=== PATIENT | male | born 1955 | race Caucasian/White ===

== ENCOUNTER → 2020-12-04 09:15 | Outpatient (BNVA) | payer OTHER, SELFPAY | PROVIDERS: PCP Internal Medicine; Visit Provider Urology ==

== ENCOUNTER 2022-04-15 11:56 | Outpatient (AMB) | payer MEDICARE, OTHER, SELFPAY ==
--- NOTE | 2022-04-10 14:13 | A.OFFVIS_ITS ---
Intake Intake Visit Reasons: Yearly follow up(erectile dysfunction) Intake Note: Patient is present for Yearly Follow Up Current Medication: Sildenafil Blood Thinners: Invoice Classification Clerk Required: No Accompanied by: Self / Same As Patient Allergies No Known Allergies Allergy (Verified 04/16/23 08:33) HPI HPI Comments History of Present Illness Details Marin Jett is a very pleasant male. He is a patient of Dr Potter. He is seen in the office today for the following urologic conditions. - erectile dysfunction Stable Erectile dysfunction: Still with good response to low-dose sildenafil. Refill provided. Last PSA was 0.7. Only needs to check it every few years He presents today for for continued evaluation and management of erectile dysfunction. Symptoms have been present for/since years ago. Procedure(s)/Diagnosis causing dysfunction include Underwent bowel resection for lymphoma in 1995 . Current treatment includes Viagra/sildenafil - given generic script. At this time he experiences erections are partial and adequate for vaginal penetration, PEDRITO 17-21 Mild ED. Nocturnal erections do not occur. Currently they are in a stable relationship. Associated problems - dyslipidemia, hypertension Medications include(s) antihypertensive medication - metoprolol. Recent labs included a PSA (prostate-specific antigen) 10/2014 0.1 10/30 0.7. Overall he is satisfied with the current management. Current symptoms include trouble getting an erection, trouble sustaining an erection. Severity of the symptoms is moderate PEDRITO September 2015 13. [facility] Medical History Atrial fibrillation Erectile dysfunction HTN (hypertension) Impotence Lymphoma OA (osteoarthritis) Surgical History History of surgery Family History (Updated 04/16/23 @ 08:33 by MARE Camarillo) Father No problems noted. Mother No problems noted. Social History (Updated 04/16/23 @ 08:34 by MARE Camarillo) Alcohol intake: current Alcohol intake frequency: does not drink Patient Tobacco Use Status: Never used Tobacco Review of Systems Const Denies chills and Denies fever(s) Card Reports no additional complaints and Denies syncope Resp Denies cough GI Denies abdominal pain and Denies heartburn Reports as per HPI and Denies change in libido Neuro Denies syncope Psych Denies change in libido Endo Denies change in libido Physical Exam Const General: cooperative, healthy appearing, comfortable and no acute distress Orientation/consciousness: patient oriented x3 HEENT Face and sinus: Yes normal facial exam Mouth: moist mucous membranes Neck Neck: Yes normal visual inspection, Yes full ROM and Yes trachea midline Chest Chest palpation & inspection: normal inspection of the chest Resp Effort & Inspection: normal respiratory effort, able to speak in complete sentences and no respiratory distress GI Inspection: Yes normal to inspection Back/Spine/Pelvis Cervical Spine: normal cervical lordosis Thoracic/Lumbar Spine: thoracic and lumbar spine normal to inspection Skin General skin exam: no rashes or lesions noted Neuro General: patient oriented x3, gait normal, tone normal and moves all extremities Extrem General: Yes normal to inspection and Yes capillary refill normal Results AMB Urinalysis, Automated UA Leukoctes 0 Jeff/uL Last Edit by MARE Cam on 04/15/22 12:06 UA Nitrite Negative Last Edit by MARE Cam on 04/15/22 12:06 UA Urobilinogen 0.2 mg/dL Last Edit by MARE Cam on 04/15/22 12:06 UA Protein 0 mg/dL Last Edit by MARE Cam on 04/15/22 12:06 UA pH 6.0 Last Edit by MARE Cam on 04/15/22 12:06 UA Blood 0 Sher/uL Last Edit by MARE Cam on 04/15/22 12:06 UA Specific [place] 1.005 Last Edit by MARE Cam on 04/15/22 12:06 UA Ketone Negative Last Edit by MARE Cam on 04/15/22 12:06 UA Bilirubin 0 mg/dL Last Edit by MARE Cam on 04/15/22 12:06 UA Glucose 0 mg/dL Last Edit by MARE Cam on 04/15/22 12:06 Results Reviewed Results Reviewed: Laboratory Last Values Urine pH (Auto) 6.0 04/15/22 12:02 Specific [place] (Auto) 1.005 04/15/22 12:02 Urine Protein (Auto) 0 mg/dL 04/15/22 12:02 Glucose (UA)(Auto) 0 mg/dL 04/15/22 12:02 Urine Ketones (Auto) Negative 04/15/22 12:02 Urine Blood (Auto) 0 Sher/uL 04/15/22 12:02 Urine Nitrite (Auto) Negative 04/15/22 12:02 Urine Bilirubin (Auto) 0 mg/dL 04/15/22 12:02 Urine Urobilinogen (Auto) 0.2 mg/dL 04/15/22 12:02 Leukocyte Esterase (Auto) 0 Jeff/uL 04/15/22 12:02 Assessment & Plan Assessment & Plan (1) Erectile dysfunction: Code(s): N52.9 - Male erectile dysfunction, unspecified Qualifiers: Erectile dysfunction type: vasculogenic Vasculogenic erectile dysfunction type: due to arterial insufficiency Qualified Code(s): N52.01 - Erectile dysfunction due to arterial insufficiency Plan Twelve month follow-up Orders: Orders Prostate Specific Antigen 12 Months N52.9 - Male erectile dysfunction, unspecified AMB Urinalysis Automated 04/15/22 Z13.9 - Encounter for screening, unspecified Patient Instructions: Imaging studies, laboratory and physical exam results were discussed and reviewed in detail. No major barriers to patient understanding were identified. An opportunity to ask questions regarding the treatment plan was provided. All questions were answered. The patient expressed understanding and agreement with the above treatment plan. The patient is aware they should contact our office by phone for worsening of their current condition or the appearance of new urologic symptoms. Compliance is encouraged with any medications and followup testing that is ordered. It is a privilege to participate in the urologic care of your patient. If you have any questions or concerns regarding treatment for the above conditions, or other urologic issues, please do not hesitate to contact me. The office telephone contact is [phone]. This note is constructed using voice recognition software. While every effort has been made to ensure accuracy community director errors may have been included. Yours sincerely, Dr Espinoza Cordoba MD, DON [facility] - Urology Providers of Expert, Compassionate Care for the Genitourinary System Coding Level of Care Code Est Pt Level 4 (35238) Diagnoses Erectile dysfunction due to arterial insufficiency N52.01 Erectile dysfunction type: vasculogenic Vasculogenic erectile dysfunction type: due to arterial insufficiency
--- NOTE | 2022-04-15 12:00 | A.OFFVIS_ITS ---
Intake Intake Visit Reasons: Yearly follow up(erectile dysfunction) Intake Note: patient here for follow up erectile dysfunction Allergies No Known Allergies Allergy (Verified 04/15/22 12:00) HPI HPI Comments History of Present Illness Details Marin Jett is a very pleasant male. They are a patient of Dr Potter. They are seen in the office today for the following urologic conditions. - erectile dysfunction Telephone evaluation 15 minutes spent in consultation Talked about playing football and wrestling in college Erectile dysfunction: Still with good response to low-dose sildenafil. Refill provided. Last PSA was 0.7. Only needs to check it every few years He presents today for for continued evaluation and management of erectile dysfunction. Symptoms have been present for/since years ago. Procedure(s)/Diagnosis causing dysfunction include Underwent bowel resection for lymphoma in 1995 . Current treatment includes Viagra/sildenafil - given generic script. At this time he experiences erections are partial and adequate for vaginal penetration, PEDRITO 17-21 Mild ED. Nocturnal erections do not occur. Currently they are in a stable relationship. Associated problems hypertension No diabetes No dyslipidemia Yes depression No stress No decreased libido No pelvic surgery No Medications include(s) antihypertensive medication - metoprolol. Recent labs included a PSA (prostate-specific antigen) 10/2014 0.1 10/30 0.7. Overall he is satisfied with the current management. Current symptoms include trouble getting an erection, trouble sustaining an erection. Severity of the symptoms is moderate PEDRITO September 2015 13. [facility] Medical History Atrial fibrillation Erectile dysfunction HTN (hypertension) Impotence Lymphoma OA (osteoarthritis) Surgical History History of surgery Results AMB Urinalysis, Automated UA Leukoctes 0 Jeff/uL Last Edit by MARE Cam on 04/15/22 12:06 UA Nitrite Negative Last Edit by MARE Cam on 04/15/22 12:06 UA Urobilinogen 0.2 mg/dL Last Edit by MARE Cam on 04/15/22 12:06 UA Protein 0 mg/dL Last Edit by MARE Cam on 04/15/22 12:06 UA pH 6.0 Last Edit by MARE Cam on 04/15/22 12:06 UA Blood 0 Sher/uL Last Edit by MARE Cam on 04/15/22 12:06 UA Specific [place] 1.005 Last Edit by HONEY CamA on 04/15/22 12:06 UA Ketone Negative Last Edit by MARE Cam on 04/15/22 12:06 UA Bilirubin 0 mg/dL Last Edit by MARE Cam on 04/15/22 12:06 UA Glucose 0 mg/dL Last Edit by MARE Cam on 04/15/22 12:06 Results Reviewed Results Reviewed: Laboratory Last Values Urine pH (Auto) 6.0 04/15/22 12:02 Specific [place] (Auto) 1.005 04/15/22 12:02 Urine Protein (Auto) 0 mg/dL 04/15/22 12:02 Glucose (UA)(Auto) 0 mg/dL 04/15/22 12:02 Urine Ketones (Auto) Negative 04/15/22 12:02 Urine Blood (Auto) 0 Sher/uL 04/15/22 12:02 Urine Nitrite (Auto) Negative 04/15/22 12:02 Urine Bilirubin (Auto) 0 mg/dL 04/15/22 12:02 Urine Urobilinogen (Auto) 0.2 mg/dL 04/15/22 12:02 Leukocyte Esterase (Auto) 0 Jeff/uL 04/15/22 12:02 Assessment & Plan Assessment & Plan Orders: Orders AMB Urinalysis Automated Today Z13.9 - Encounter for screening, unspecified Prostate Specific Antigen 12 Months N52.9 - Male erectile dysfunction, unspecified Coding
== END 2022-04-15 12:38 | disposition home or self-care (01) ==
LOC: HO.HUSH 11:56
PROVIDERS: PCP Nurse Practitioner Adult Health; Visit Provider Urology
DX: N52.01 Erectile dysfunction due to arterial insufficiency (principal)
CPT/HCPCS: 99214; 99499

== ENCOUNTER → 2022-04-15 11:56 | Outpatient (BNVA) | payer MEDICARE, OTHER, SELFPAY | PROVIDERS: PCP Nurse Practitioner Adult Health; Visit Provider Urology | DX: N52.01 Erectile dysfunction due to arterial insufficiency (principal) | CPT/HCPCS: 99212 ==

== ENCOUNTER 2023-04-03 11:26 | Outpatient (REF) | payer MEDICARE, OTHER, SELFPAY ==
[2023-04-03 14:20] LABS: Prostate Specific Antigen 0.13 ng/mL (<0.05-4.0)
== END 2023-04-03 11:27 | disposition home or self-care (01) ==
LOC: HO.10HDL 11:26
PROVIDERS: Visit Provider Urology
DX: N52.9 Male erectile dysfunction, unspecified (principal); Z12.5 Encounter for screening for malignant neoplasm of prostate
CPT/HCPCS: 36415; 84153

== ENCOUNTER 2023-04-16 08:26 | Outpatient (AMB) | payer MEDICARE, OTHER, SELFPAY ==
--- NOTE | 2023-04-16 08:28 | MHC.OFFVIS ---
Intake Intake Visit Reasons: 1Y PSA/Erectile Dys(set) Intake Note: Patient is present for ED Follow up Submarine Element Coordinator Required: No Accompanied by: Self / Same As Patient Allergies No Known Allergies Allergy (Verified 04/16/23 08:33) Medication List - Last Reconciled 04/16/23 by Espinoza Cordoba MD cholestyramine (with sugar) 4 gram 1 g PO TID metoprolol succinate ER 50 mg PO DAILY sildenafil 50 mg PO DAILY PRN 30 days HPI HPI Comments History of Present Illness Details Marin Jett is a very pleasant male. He is a patient of Dr Potter. He is seen in the office today for the following urologic conditions. - erectile dysfunction Does have left spermatocele Talked about playing football and wrestling in college Erectile dysfunction: Still with good response to low-dose sildenafil. Refill provided. Last PSA was 0.7. Only needs to check it every few years He presents today for for continued evaluation and management of erectile dysfunction. Symptoms have been present for/since years ago. Procedure(s)/Diagnosis causing dysfunction include Underwent bowel resection for lymphoma in 1995 . Current treatment includes Viagra/sildenafil - given generic script. At this time he experiences erections are partial and adequate for vaginal penetration, PEDRITO 17-21 Mild ED. Nocturnal erections do not occur. Currently they are in a stable relationship. Associated problems - dyslipidemia, hypertension Medications include(s) antihypertensive medication - metoprolol. Recent labs included a PSA (prostate-specific antigen) 10/2014 0.1 10/30 0.7. Overall he is satisfied with the current management. Current symptoms include trouble getting an erection, trouble sustaining an erection. Severity of the symptoms is moderate PEDRITO September 2015 13. [facility] Medical History Atrial fibrillation Erectile dysfunction HTN (hypertension) Impotence Lymphoma OA (osteoarthritis) Surgical History History of surgery Family History (Updated 04/16/23 @ 08:33 by MARE Camarillo) Father No problems noted. Mother No problems noted. Social History (Updated 04/16/23 @ 08:34 by MARE Camarillo) Alcohol intake: current Alcohol intake frequency: does not drink Patient Tobacco Use Status: Never used Tobacco Review of Systems Const Denies chills and Denies fever(s) Card Reports no additional complaints and Denies syncope Resp Denies cough GI Denies abdominal pain and Denies heartburn Reports as per HPI and Denies change in libido Neuro Denies syncope Psych Denies change in libido Endo Denies change in libido Physical Exam Const General: cooperative, healthy appearing, comfortable and no acute distress Orientation/consciousness: patient oriented x3 HEENT Face and sinus: Yes normal facial exam Mouth: moist mucous membranes Neck Neck: Yes normal visual inspection, Yes full ROM and Yes trachea midline Chest Chest palpation & inspection: normal inspection of the chest Resp Effort & Inspection: normal respiratory effort, able to speak in complete sentences and no respiratory distress GI Inspection: Yes normal to inspection Back/Spine/Pelvis Cervical Spine: normal cervical lordosis Thoracic/Lumbar Spine: thoracic and lumbar spine normal to inspection Skin General skin exam: no rashes or lesions noted Neuro General: patient oriented x3, gait normal, tone normal and moves all extremities Extrem General: Yes normal to inspection and Yes capillary refill normal Results AMB Urinalysis, Automated UA Leukoctes 0 Jeff/uL Last Edit by MARE Camarillo on 04/16/23 08:36 UA Nitrite Negative Last Edit by MARE Camarillo on 04/16/23 08:36 UA Urobilinogen 0.2 mg/dL Last Edit by MARE Camarillo on 04/16/23 08:36 UA Protein 0 mg/dL Last Edit by MARE Camarillo on 04/16/23 08:36 UA pH 6.0 Last Edit by MARE Camarillo on 04/16/23 08:36 UA Blood 0 Sher/uL Last Edit by MARE Camarillo on 04/16/23 08:36 UA Specific [place] 1.010 Last Edit by MARE Camarillo on 04/16/23 08:36 UA Ketone Negative Last Edit by MARE Camarillo on 04/16/23 08:36 UA Bilirubin 0 mg/dL Last Edit by MARE Camarillo on 04/16/23 08:36 UA Glucose 0 mg/dL Last Edit by MARE Camarillo on 04/16/23 08:36 Results Reviewed Results Reviewed: Laboratory Last Values Urine pH (Auto) 6.0 04/16/23 08:34 Specific [place] (Auto) 1.010 04/16/23 08:34 Urine Protein (Auto) 0 mg/dL 04/16/23 08:34 Glucose (UA)(Auto) 0 mg/dL 04/16/23 08:34 Urine Ketones (Auto) Negative 04/16/23 08:34 Urine Blood (Auto) 0 Sher/uL 04/16/23 08:34 Urine Nitrite (Auto) Negative 04/16/23 08:34 Urine Bilirubin (Auto) 0 mg/dL 04/16/23 08:34 Urine Urobilinogen (Auto) 0.2 mg/dL 04/16/23 08:34 Leukocyte Esterase (Auto) 0 Jeff/uL 04/16/23 08:34 Assessment & Plan Assessment & Plan (1) Erectile dysfunction: Code(s): N52.9 - Male erectile dysfunction, unspecified Qualifiers: Erectile dysfunction type: vasculogenic Vasculogenic erectile dysfunction type: due to arterial insufficiency Qualified Code(s): N52.01 - Erectile dysfunction due to arterial insufficiency Plan Twelve month follow-up Orders: Orders AMB Urinalysis Automated Today Z13.9 - Encounter for screening, unspecified Medications: Changed From sildenafil administer 60 minutes before intended activity 25 mg PO DAILY PRN 60 tabs 6RF sexual activity 30 days N52.9 - Male erectile dysfunction, unspecified To sildenafil administer 60 minutes before intended activity 50 mg PO DAILY PRN 30 tabs 2RF sexual activity 30 days N52.9 - Male erectile dysfunction, unspecified Patient Instructions: Imaging studies, laboratory and physical exam results were discussed and reviewed in detail. No major barriers to patient understanding were identified. An opportunity to ask questions regarding the treatment plan was provided. All questions were answered. The patient expressed understanding and agreement with the above treatment plan. The patient is aware they should contact our office by phone for worsening of their current condition or the appearance of new urologic symptoms. Compliance is encouraged with any medications and followup testing that is ordered. It is a privilege to participate in the urologic care of your patient. If you have any questions or concerns regarding treatment for the above conditions, or other urologic issues, please do not hesitate to contact me. The office telephone contact is [phone]. This note is constructed using voice recognition software. While every effort has been made to ensure accuracy office analyst errors may have been included. Yours sincerely, Dr Espinoza Cordoba MD, DON [facility] - Urology Providers of Expert, Compassionate Care for the Genitourinary System Coding Level of Care Code Est Pt Level 4 (70770) Diagnoses Erectile dysfunction due to arterial insufficiency N52.01 Erectile dysfunction type: vasculogenic Vasculogenic erectile dysfunction type: due to arterial insufficiency
== END 2023-04-16 09:03 | disposition home or self-care (01) ==
PROVIDERS: PCP Nurse Practitioner Adult Health; Visit Provider Urology
DX: Z13.9 Encounter for screening, unspecified (principal); N52.01 Erectile dysfunction due to arterial insufficiency
CPT/HCPCS: 99214

== ENCOUNTER → 2023-04-16 08:26 | Outpatient (BNVA) | payer MEDICARE, OTHER, SELFPAY | PROVIDERS: Visit Provider Urology | DX: N52.01 Erectile dysfunction due to arterial insufficiency (principal) | CPT/HCPCS: 81003; 99212 ==

== ENCOUNTER 2024-04-19 09:08 | Outpatient (AMB) | payer MEDICARE, OTHER, SELFPAY ==
--- NOTE | 2024-04-19 09:21 | A.OFFVIS_ITS ---
Intake Visit Reasons: 1Y Follow Up-(ED) Intake Note: Patient is Present for Follow Up Yearly Erectile Dys Urology Medication: Patient is no longer taking Sildenafil Antibiotic Allergies: None Blood Thinners: None Recent PSA: 03/2023- 0.13 Patient states that he has a new allergy to Gluten and Is no longer taking Sildenafil Ceramic Coater Required: No Accompanied by: Self / Same As Patient Allergies No Known Allergies Allergy (Verified 04/16/23 08:33) HPI Comments Details: Marin Jett is a very pleasant male. He is a patient of Dr Potter. He is seen in the office today for the following urologic conditions. - erectile dysfunction - left spermatocele Yearly follow-up Talked about playing football and wrestling in college Known left spermatocele Erectile dysfunction: Still with good response to low-dose sildenafil. Refill provided. Last PSA was 0.7. Only needs to check it every few years He presents today for for continued evaluation and management of erectile dysfunction. Symptoms have been present for/since years ago. Procedure(s)/Diagnosis causing dysfunction include Underwent bowel resection for lymphoma in 1995 . Current treatment includes Viagra/sildenafil - given generic script. At this time he experiences erections are partial and adequate for vaginal penetration, PEDRITO 17-21 Mild ED. Nocturnal erections do not occur. Currently they are in a stable relationship. Associated problems - dyslipidemia, hypertension Medications include(s) antihypertensive medication - metoprolol. Recent labs included a PSA (prostate-specific antigen) 10/2014 0.1 10/30 0.7. Overall he is satisfied with the current management. Current symptoms include trouble getting an erection, trouble sustaining an erection. Severity of the symptoms is moderate PEDRITO September 2015 13. [facility] Medical History Lymphoma HTN (hypertension) Atrial fibrillation OA (osteoarthritis) Impotence Erectile dysfunction Surgical History History of surgery Family History Father No problems noted. Mother No problems noted. Social History Alcohol intake: current Alcohol intake frequency: does not drink Patient Tobacco Use Status: Never used Tobacco Review of Systems Const Denies chills and Denies fever(s) Card Reports no additional complaints and Denies syncope Resp Denies cough GI Denies abdominal pain and Denies heartburn Reports as per HPI and Denies change in libido Neuro Denies syncope Psych Denies change in libido Endo Denies change in libido Physical Exam Const General: cooperative, healthy appearing, comfortable and no acute distress Orientation/consciousness: patient oriented x3 HEENT Face and sinus: Yes normal facial exam Mouth: moist mucous membranes Neck Neck: Yes normal visual inspection, Yes full ROM and Yes trachea midline Chest Chest palpation & inspection: normal inspection of the chest Resp Effort & Inspection: normal respiratory effort, able to speak in complete sentences and no respiratory distress GI Inspection: Yes normal to inspection Back/Spine/Pelvis Cervical Spine: normal cervical lordosis Thoracic/Lumbar Spine: thoracic and lumbar spine normal to inspection Skin General skin exam: no rashes or lesions noted Neuro General: patient oriented x3, gait normal, tone normal and moves all extremities Extrem General: Yes normal to inspection and Yes capillary refill normal Assessment & Plan Assessment & Plan (1) Erectile dysfunction: Code(s): N52.9 - Male erectile dysfunction, unspecified Category: Medical Qualifiers: Erectile dysfunction type: vasculogenic Vasculogenic erectile dysfunction type: due to arterial insufficiency Qualified Code(s): N52.01 - Erectile dysfunction due to arterial insufficiency Plan Yearly follow-up Patient Instructions: Imaging studies, laboratory and physical exam results were discussed and reviewed in detail. No major barriers to patient understanding were identified. An opportunity to ask questions regarding the treatment plan was provided. All questions were answered. The patient expressed understanding and agreement with the above treatment plan. The patient is aware they should contact our office by phone for worsening of their current condition or the appearance of new urologic symptoms. Compliance is encouraged with any medications and followup testing that is ordered. It is a privilege to participate in the urologic care of your patient. If you have any questions or concerns regarding treatment for the above conditions, or other urologic issues, please do not hesitate to contact me. The office telephone contact is [phone]. This note is constructed using voice recognition software. While every effort has been made to ensure accuracy studio assistant errors may have been included. Yours sincerely, Dr Espinoza Cordoba MD, DON [facility] - Urology Providers of Expert, Compassionate Care for the Genitourinary System Coding Level of Care Code Est Pt Level 4 (41992) Diagnoses Erectile dysfunction due to arterial insufficiency N52.01 Erectile dysfunction type: vasculogenic Vasculogenic erectile dysfunction type: due to arterial insufficiency
== END 2024-04-19 09:56 | disposition home or self-care (01) ==
PROVIDERS: PCP Nurse Practitioner Adult Health; Visit Provider Urology
DX: N52.01 Erectile dysfunction due to arterial insufficiency (principal)
CPT/HCPCS: 99214

== ENCOUNTER → 2024-04-19 09:08 | Outpatient (BNVA) | payer MEDICARE, OTHER, SELFPAY | PROVIDERS: PCP Nurse Practitioner Adult Health; Visit Provider Urology | DX: N52.01 Erectile dysfunction due to arterial insufficiency (principal) | CPT/HCPCS: 99212 ==

== ENCOUNTER 2025-04-05 10:34 | Outpatient (REF) | payer MEDICARE, OTHER, SELFPAY ==
[2025-04-05 12:31] LABS: Prostate Specific Antigen 0.11 ng/mL (<0.05-4.0)
--- OUTSIDE RECORDS SUMMARY | 2025-04-05 13:13 | XMS_ITS | Clinical Summary ---
Author Organization [facility] Address [address] [place] [address] Care Team Providers Care [employer] Supervisor Name Role Phone Nick Potter MD Primary Care Provider [phone] Medications Medication Sig Dispensed Refills Start Date End Date Status metoprolol succinate (TOPROL-XL) 24 hr tablet 50 mg Take 50 mg by mouth daily. 0 Active cholestyramine light 4 g packet Take 4 g by mouth 2 (two) times a day. 0 Active Multiple Vitamins-Minerals (CENTRUM SILVER PO) Take by mouth. 0 A ctive Vitamin D, Cholecalciferol, 50 MCG (2000 UT) CAPS Take by mouth. 0 Active ascorbic acid (VITAMIN C) 500 MG tablet Take 500 mg by mouth daily. 0 Active Xbwggmzvydo-Hzaadakpw-Y it C-Mn (GLUCOSAMINE CHONDR 1500 COMPLX PO) Take by mouth. 0 Active Active Problems Problem Noted Date Diagnosed Date Diffuse large cell lymphoma in remission 021 Lymphadenopathy of right cervical region 021 Social History Tobacco Use Types Packs/Day Years Used Date Smoking Tobacco: Never Smokeless Tobacco: Never Alcohol Use Standard Drinks/Week Comments No 0 (1 standard drink = 0.6 oz pur e alcohol) Sex and Gender Information Value Date Recorded Sex Assigned at Not on file Gender Identity Not on file Sexual Orientation Not on file Last Filed Vital Signs Vital Sign Reading Time Taken Comments Blood Pressure 133/77 09/13/2020 1:23 PM EST Pulse 61 09/13/2020 1:23 PM EST Temperature 36.4 C (97.5 F) 09/13/2020 1:23 PM EST Respiratory Rate - - Oxygen Saturation - - Inhaled Oxygen Concentration - - Weight 102.1 kg (225 lb) 09/13/2020 1:23 PM EST Height 190.5 cm (6' 3 ) 09/13/2020 1:23 PM EST Body Mass Index 28.12 09/13/2020 1:23 PM EST Plan of Treatment Health Maintenance Due Date Last Done Comments Hepatitis C Screening 1954 COVID-19 Vaccine (#1) 1959 Depression Screening 1966 Preventative Health Evaluation 1972 DTap / Tdap / Td (1 - Tdap) 1973 Shingrix-Zoster Vaccine (1 of 2) 1973 Colon Cancer Screening (Colonoscopy) 1999 Pneumococcal Vaccine (2 of 2 - PPSV23 or PCV20) 02/12/2018 12/18/2017 Fall Risk Assessment 2019 Influenza Vaccine (#1) 2025 RSV Adult > 60+ Yrs or Pregn ant (1 - 1-dose 75+ series) 2029 Hepatitis B Vaccines Aged Out No long er eligible based on patient's age to complete this topic RSV Ped < 20 months Aged Out No longe r eligible based on patient's age to complete this topic Care Teams [employer] Fabrication Supervisor Relationship Specialty Start Date End Date Nick Potter MD [address] [facility] [address] Cardiology & [place] [address] PCP - General Internal Medicine 09/07/20
== END 2025-04-05 10:35 | disposition home or self-care (01) ==
LOC: HO.LAB 10:34
PROVIDERS: Visit Provider Urology
DX: Z12.5 Encounter for screening for malignant neoplasm of prostate (principal)
CPT/HCPCS: 36415; 84153

== ENCOUNTER 2025-04-19 08:35 | Outpatient (AMB) | payer MEDICARE, OTHER, SELFPAY ==
--- NOTE | 2025-04-19 08:34 | MHC.OFFVIS ---
Intake Visit Reasons: 1y/PSA Intake Note: Patient is Present for Follow Up Yearly Erectile Dys Urology Medication: Sildenafil Antibiotic Allergies: None Blood Thinners: None Recent PSA: 04/05/25- 0.11 Evp Chief Exploration Officer Required: No Accompanied by: Self / Same As Patient Allergies No Known Allergies Allergy (Verified 04/19/25 08:35) HPI Comments Details: Marin Jett is a very pleasant male. He is a patient of Dr Potter. He is seen in the office today for the following urologic conditions. - erectile dysfunction - left spermatocele Yearly follow-up Talked about playing football and wrestling in college Known left spermatocele Continues to respond to via Erectile dysfunction: Still with good response to low-dose sildenafil. Refill provided. Last PSA was 0.7. Only needs to check it every few years He presents today for for continued evaluation and management of erectile dysfunction. Symptoms have been present for/since years ago. Procedure(s)/Diagnosis causing dysfunction include Underwent bowel resection for lymphoma in 1995 . Current treatment includes Viagra/sildenafil - given generic script. At this time he experiences erections are partial and adequate for vaginal penetration, PEDRITO 17-21 Mild ED. Nocturnal erections do not occur. Currently they are in a stable relationship. Associated problems - dyslipidemia, hypertension Medications include(s) antihypertensive medication - metoprolol. Recent labs included a PSA (prostate-specific antigen) 10/2014 0.1 10/30 0.7. Overall he is satisfied with the current management. Current symptoms include trouble getting an erection, trouble sustaining an erection. Severity of the symptoms is moderate PEDRITO September 2015 13. [facility] Medical History Lymphoma HTN (hypertension) Atrial fibrillation OA (osteoarthritis) Impotence Erectile dysfunction Surgical History History of surgery Family History Father No problems noted. Mother No problems noted. Social History Alcohol intake: current Alcohol intake frequency: does not drink Patient Tobacco Use Status: Never used Tobacco Review of Systems Const Denies chills and Denies fever(s) Card Reports no additional complaints and Denies syncope Resp Denies cough GI Denies abdominal pain and Denies heartburn Reports as per HPI and Denies change in libido Neuro Denies syncope Psych Denies change in libido Endo Denies change in libido Physical Exam Const General: cooperative, healthy appearing, comfortable and no acute distress Orientation/consciousness: patient oriented x3 HEENT Face and sinus: Yes normal facial exam Mouth: moist mucous membranes Neck Neck: Yes normal visual inspection, Yes full ROM and Yes trachea midline Chest Chest palpation & inspection: normal inspection of the chest Resp Effort & Inspection: normal respiratory effort, able to speak in complete sentences and no respiratory distress GI Inspection: Yes normal to inspection Back/Spine/Pelvis Cervical Spine: normal cervical lordosis Thoracic/Lumbar Spine: thoracic and lumbar spine normal to inspection Skin General skin exam: no rashes or lesions noted Neuro General: patient oriented x3, gait normal, tone normal and moves all extremities Extrem General: Yes normal to inspection and Yes capillary refill normal Assessment & Plan Assessment & Plan (1) Erectile dysfunction: Code(s): N52.9 - Male erectile dysfunction, unspecified Category: Medical Qualifiers: Erectile dysfunction type: vasculogenic Vasculogenic erectile dysfunction type: due to arterial insufficiency Qualified Code(s): N52.01 - Erectile dysfunction due to arterial insufficiency Plan Twelve month follow-up Medications: Changed From sildenafil administer 60 minutes before intended activity 50 mg PO DAILY 30 days PRN 30 tabs 1RF sexual activity N52.9 - Male erectile dysfunction, unspecified To sildenafil administer 60 minutes before intended activity 50 mg PO ONCE PRN 30 tabs 1RF sexual activity 30 days N52.9 - Male erectile dysfunction, unspecified Patient Instructions: This note is constructed using voice recognition software. While every effort has been made to ensure accuracy division human resources manager errors may have been included. Imaging studies, laboratory and physical exam results were discussed and reviewed in detail. No major barriers to patient understanding were identified. An opportunity to ask questions regarding the treatment plan was provided. All questions were answered. The patient expressed understanding and agreement with the above treatment plan. The patient is aware they should contact our office by phone for worsening of their current condition or the appearance of new urologic symptoms. Compliance is encouraged with any medications and followup testing that is ordered. It is a privilege to participate in the urologic care of your patient. If you have any questions or concerns regarding treatment for the above conditions, or other urologic issues, please do not hesitate to contact me. The office telephone contact is [phone]. 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
== END 2025-04-19 08:50 | disposition home or self-care (01) ==
LOC: HO.HUSH 08:35
PROVIDERS: PCP Nurse Practitioner Adult Health; Visit Provider Urology
DX: N52.01 Erectile dysfunction due to arterial insufficiency (principal)
CPT/HCPCS: 99214; G2211

== ENCOUNTER → 2025-04-19 08:35 | Outpatient (BNVA) | payer MEDICARE, OTHER, SELFPAY | PROVIDERS: PCP Nurse Practitioner Adult Health; Visit Provider Urology | DX: N52.01 Erectile dysfunction due to arterial insufficiency (principal); N43.41 Spermatocele of epididymis, single; E78.5 Hyperlipidemia, unspecified; I10 Essential (primary) hypertension | CPT/HCPCS: 99212 ==